=== PATIENT | female | born 1985 ===

== ENCOUNTER 2020-11-01 12:13 | Observation (INO) | payer OTHER ==
[~2020-11-01] VITALS: Ht 160 cm; Wt 90.7 kg
--- NOTE | 2020-11-01 13:00 | NUR ---
Patient arrived via EMS. Patient is alert and oriented, answers questions appropriately. Patient reports pain is tolerable at this time. denies needs, call light within reach.
[2020-11-01 13:42] VITALS: BP 103/65; PULSE 78; TEMP 98.3
[2020-11-01 15:52] VITALS: BP 104/66; PULSE 85; TEMP 98.5
[2020-11-01 20:02] VITALS: BP 99/58; PULSE 73; TEMP 98.3
--- NOTE | 2020-11-01 21:00 | NUR ---
PT IN BED. DENIES PAIN, REPORTS DIARRHEA STOOLS, NOT UNUSUAL FOR HER. HAS IVF TO RIGHT AC. PROVIDED ICE WATER PER PT REQUEST. PLACED SCDS ON PT FOR DVT PREVENTATIVE. PT UP INDEPENDENTLY IN ROOM. DENIES NAUSEA.
[2020-11-02 00:03] VITALS: BP 109/61; PULSE 103; TEMP 98.1
[2020-11-02 04:11] VITALS: BP 104/56; PULSE 83; TEMP 97.9
--- NOTE | 2020-11-02 04:24 | NUR ---
PT COMPLAINS OF HEADACHE, TYLENOL 650MG PO GIVEN AT THIS TIME.
[2020-11-02 05:59] LABS: BASO % 0.3 % (0.0-2.0); EOS # 0.2 (0.0-0.7); EOS % 3.4 % (0-4.0); GRAN # 3.8 (1.4-6.5); GRAN % 59.6 % (42.2-75.2); HEMOGLOBIN 11.5 g/dl (12.5-16.0); LYMPH # 1.9 (1.2-3.4); LYMPH % 29.7 % (20.0-51.0); MEAN CELL VOLUME 90 fl (80.0-100.0); MEAN CORPUSCULAR HEMOGLOBIN 28 pg (27.0-31.0); MEAN CORPUSCULAR HGB CONC 32 g/dl (33.0-37.0); MEAN PLATELET VOLUME 10.4 fl (7.4-10.4); MONO # 0.4 (0.1-0.6); MONO % 6.8 % (1.7-9.3); PLATELET COUNT 263 K/mm3 (130-400); RED BLOOD COUNT 4.05 M/mm3 (4.10-5.30); REDCELL DISTRIBUTION WIDTH-CV 13.7 % (11.5-14.5)
[2020-11-02 06:07] LABS: ALBUMIN 3.5 gm/dL (3.5-5.0); BILIRUBIN,TOTAL 0.7 mg/dL (0.0-1.0); CALCIUM 8.4 mg/dL (8.4-10.2); CREATININE, serum 0.6 (0.52-1.25); POTASSIUM 3.6 mmol/L (3.4-5.0); TOTAL PROTEIN 6.6 gm/dL (6.4-8.2)
[2020-11-02 06:09] LABS: HEMATOCRIT 36.3 % (37.0-47.0)
[2020-11-02 08:02] VITALS: BP 107/69; PULSE 86; TEMP 99
--- NOTE | 2020-11-02 10:00 | NUR ---
Patient resting in bed at this time. Patient is alert and oriented, answers questions appropriately. Patient reports that pain in RLQ is gone, does c/o headache. Requested to take a shower, patient given supplies, iv covered, and patient showered independently. Denies further needs, call light radhahtin reach.
--- NOTE | 2020-11-02 10:45 | NUR ---
SW met with patient to complete intake. Patient states that she lives in [place] with her Fausto [phone]. Patient states that she does not utilize a cane nor a walker, and is independent with ADL's. Patient provides that she is unsure of who are PCP is, but knows that they are at [facility], and that she obtains her medications from [facility] as [facility]. Patient provides that her is her DPOA-HC. Plan: SW informed that patient would be discharging back to her home today and will have no SW needs. SW will continue to follow.
[2020-11-02 11:53] VITALS: BP 111/76; PULSE 86; TEMP 98.2
[2020-11-02] MEDS ORDERED: TYLENOL 325MG325 MG PO (13:10)
--- NOTE | 2020-11-02 13:45 | NUR ---
Discharge teaching completed. Discussed follow up appointment and diet advancement. Patient and denied questions or concerns. IV removed, catheter intact, hemostasis achieved. Patient gathered belongings and was escorted to ED entrance where she entered a private vehicle.
== END 2020-11-02 13:45 | disposition home or self-care (01) ==
LOC: MEDICAL 12:13 → SURG 13:15
PROVIDERS: ADMIT Surgery
DX: R10.31 Right lower quadrant pain (principal); R11.0 Nausea; R19.7 Diarrhea, unspecified
CPT/HCPCS: G0378; J7042